=== PATIENT | male | born 1950 | race Caucasian/White ===

== ENCOUNTER 2016-10-10 06:20 | Emergency (ER) | payer OTHER, MEDICARE ==
[~2016-10-10] VITALS: Ht 188 cm; Wt 81.7 kg
--- NOTE | ~2016-10-10 | EKG ---
[place] [address] [employer] 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 : 1950 Requested By: Igor Lin Order Number: [id number] MD: Jorge Vogel Measurements Intervals [place] Rate: 55 P: 10 ND: 141 QRS: -9 QRSD: 95 T: -42 QT: 436 QTc: 417 Interpretive Statements Sinus rhythm Probable left atrial enlargement Anteroseptal infarct, old Nonspecific T abnormalities, lateral leads Compared to ECG 09/14/2014 16:58:12 T-wave abnormality now present Electronically Signed On 10-11-2016 7:48:59 CDT by Jorge Vogel [email or web address] <ELECTRONICALLY SIGNED> By: Jorge Vogel MD, [facility] 10/11/16 0748 0904 0904 Jorge Vogel MD, [facility] /EPI
[~2016-10-10 06:20] MED LIST: ACTOS 45 MG45 M1 PO; ACYCLOVIR 400400 MG PO; ADRENACLIC0.3 MG/0.3 IM; ADVIL PM CAPLE1 EACH PO; AMARYL4 MG PO; AMLODIPINE-BEN1 EAC1; AMOXICILLIN 50500 MG PO; ASPIRIN325 PO; BAYER PLUS 500500 MG PO; BENADRYL25 MG PO; CARVEDILOL12.5 MG PO; CATAPRES0.1 MG PO; CHLORTHALIDONE25 MG PO; CLARINEX5 MG PO; CLONIDINE 2 PO; CLONIDINE0.1 PO; COZAAR 25 MG TA25 M1 PO; CRESTOR10 MG PO; DEPO-TESTO200 MG/1 M IM; DILTIAZEM 24HR360 M1 PO; DILTIAZEM 24HR360 MG PO; EFFIENT10 MG PO; ENDOCET 10-3251 EACH; EPIPEN 2-P0.3 MG/0.3 IM; EPIPEN0.3 MG/0.3 IM; FENTANYL 1100 MCG/HR TRANSDERM; FENTANYL PATCH75 MCG TOP; FLONASE 0.05%50 MCG NASAL; FLONASE16 GM NASAL; GLUCOPHAGE XR500 MG PO; GLUCOPHAGE500 MG PO; HCTZ; HUMALOG100 UNIT/1 SUBQ; HYDROCHLOROTHIA25 M2 PO; HYDROCODON-ACE1 EAC5; HYDROCODON-ACE1 EAC7 PO; IBUPROFEN 800800 M1 PO; INVOKANA300 MG PO; K-DUR10 ME1 PO; K-DUR10 MEQ PO; LANTUS SUBQ; LASIX 40 MG TAB40 M1 PO; LEVITRA20 MG PO; LIDODERM 5%1 PATC1 TOP; LIPITOR10 MG PO; LUNESTA PO; LUNESTA3 MG PO; MEDROL DOSPAK21 TAB PO; METOPROLOL SUCC25 M1 PO; MULTIVITAMINS PO; MYCELEX10 MG PO; NEO-SYNEPHRINE15 M2 NASAL; NEOSYNEPHRINE; NITROGLYCERIN0.4 MG SUBLING; NORCO 5-325 TA1 EACH PO; OXYCODONE HCL5 M1 PO; OXYCONTIN PO; OXYCONTIN10 M1 PO; PAXIL10 MG; PEPCID40 MG PO; PHENADOZ PO; PIOGLITAZONE15 MG; PREDNISOLONE 5 M5 M1 PO; PREDNISONE 10 M10 M1 PO; PREDNISONE 10 M10 MG PO; PREDNISONE 20 M20 M1 PO; PREDNISONE 20 M20 MG PO; PREDNISONE 5 MG5 M1; PREDNISONE 5 MG5 M1 PO; PROAIR HFA8.5 GM INH; PROAIR HFA8.5 GM PO; ROBAXIN 750 MG750 M1 PO; TEKTURNA300 MG PO; TRAZODONE HCL100 MG PO; VALACYCLOVIR500 MG PO; VALIUM5 MG PO; ZANTAC 150MG T150 M1 PO; ZOFRAN4 MG PO
[2016-10-10 07:14] LABS: ABSOLUTE NEUTROPHILS 8.3 thou/uL (1.4-8.2); BASOPHILS 0.7 % (0.0-2.0); EOSINOPHILS 0.7 % (0.0-3.0); HEMATOCRIT 46.2 % (42.0-52.0); HEMOGLOBIN 15.8 gm/dL (14.0-18.0); LYMPHOCYTES 12.6 % (24.0-44.0); MANUAL DIFF NO; MCH 34.7 pg (26.0-34.0); MCHC 34.3 g/dL (28.0-37.0); MCV 101.4 fL (80.0-100.0); MONOCYTES 9.7 % (1.0-8.0); PLATELET COUNT 244 thou/uL (150-400); POLYS 76.3 % (36.0-66.0); RBC 4.56 mil/uL (4.50-6.00); RDW 12.9 % (10.5-14.5); WBC 10.9 thou/uL (4.0-11.0)
[2016-10-10 07:23] LABS: CALCIUM 9.8 mg/dL (8.5-10.1); POTASSIUM 3.6 mmol/L (3.5-5.1)
[2016-10-10 07:29] LABS: TOTAL BILIRUBIN 0.9 mg/dL (<0.1-1.0); TOTAL PROTEIN 7.2 g/dL (6.4-8.2)
[2016-10-10 08:39] LABS: URINE BILIRUBIN NEGATIVE (Negative); URINE BLOOD TRACE (Negative); URINE GLUCOSE-RANDOM* 2+ (Negative); URINE KETONES 1+ (Negative); URINE LEUKOCYTES-REFLEX NEGATIVE (Negative); URINE PROTEIN (DIPSTICK) NEGATIVE (Negative); URINE UROBILINOGEN 0.2 E.U./dl (0.2-1.0)
[2016-10-10 08:40] LABS: URINE COLOR YELLOW
[2016-10-10] MEDS ORDERED: PHENERGAN25 M1 RC ×2 (09:45→09:48)
[2016-10-10] MEDS ORDERED: ZOFRAN ODT4 MG PO ×2 (09:45→09:48)
== END 2016-10-10 09:46 | disposition home or self-care (01) ==
LOC: ER 06:20
PROVIDERS: Emergency Medicine
DX: R11.2 Nausea with vomiting, unspecified (principal); Z86.79 Personal history of other diseases of the circulatory system; F17.210 Nicotine dependence, cigarettes, uncomplicated; Z91.040 Latex allergy status; Z91.018 Allergy to other foods; Z88.8 Allergy status to other drugs, medicaments and biological substances; Z95.5 Presence of coronary angioplasty implant and graft; Z79.4 Long term (current) use of insulin; Z79.82 Long term (current) use of aspirin

== ENCOUNTER 2017-05-18 06:07 | Emergency (ER) | payer OTHER, MEDICARE ==
[~2017-05-18] VITALS: Ht 188 cm; Wt 81.7 kg
--- NOTE | ~2017-05-18 | EKG ---
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[facility] [place] 1950 Requested By: Alex Fisher Order Number: [id number] MD: Jorge Vogel Measurements Intervals [place] Rate: 55 P: 26 SC: 147 QRS: 1 QRSD: 95 T: 9 QT: 423 QTc: 405 Interpretive Statements Sinus rhythm Anterior infarct, old Compared to ECG 10/10/2016 09:04:35 T-wave abnormality less prominent Electronically Signed On 05-18-2017 8:25:54 CDT by Jorge Vogel [email or web address] <ELECTRONICALLY SIGNED> By: Jorge Vogel MD, [facility] 05/18/17 0825 0624 3 Jorge Vogel MD, FACC /EPI
[~2017-05-18 06:07] MED LIST changes: +ONDANSETRON HCL4 M2 PO; +PHENERGAN25 M1 RC; +ZOFRAN ODT4 MG PO
[2017-05-18] MEDS ORDERED: ASPIR 8181 MG PO (06:26)
[2017-05-18] MEDS ORDERED: VITAMIN D32000 UNI1 PO (06:37)
[2017-05-18] MEDS ORDERED: TESTOSTERON100 MG/ML IM (06:37)
[2017-05-18 06:46] LABS: ABSOLUTE NEUTROPHILS 7.4 thou/uL (1.4-8.2); BASOPHILS 0.5 % (0.0-2.0); EOSINOPHILS 0.4 % (0.0-3.0); HEMATOCRIT 44.6 % (42.0-52.0); HEMOGLOBIN 15.2 gm/dL (14.0-18.0); LYMPHOCYTES 14.3 % (24.0-44.0); MCH 34.2 pg (26.0-34.0); MCHC 34.2 g/dL (28.0-37.0); PLATELET COUNT 239 thou/uL (150-400); POLYS 77.8 % (36.0-66.0); RBC 4.46 mil/uL (4.50-6.00); RDW 13.7 % (10.5-14.5); WBC 9.5 thou/uL (4.0-11.0)
[2017-05-18 06:58] LABS: ANION GAP 5 mmol/L (7-16); BUN 15 mg/dL (7-18); CALCIUM 9.7 mg/dL (8.5-10.1); CHLORIDE 102 mmol/L (98-107); CO2 32 mmol/L (21-32); GLUCOSE 168 mg/dL (74-106); POTASSIUM 3.4 mmol/L (3.5-5.1); SODIUM 139 mmol/L (136-145)
[2017-05-18 07:07] LABS: MAGNESIUM 1.7 mg/dL (1.8-2.4); SGOT 22 U/L (15-37); SGPT 30 U/L (30-65); TOTAL PROTEIN 7.3 g/dL (6.4-8.2); TROPONIN-I < 0.04 ng/mL (<0.06)
[2017-05-18 07:49] LABS: URINE BILIRUBIN NEGATIVE (Negative); URINE BLOOD NEGATIVE (Negative); URINE CLARITY CLEAR; URINE COLOR YELLOW; URINE GLUCOSE-RANDOM* NEGATIVE (Negative); URINE KETONES 1+ (Negative); URINE LEUKOCYTES-REFLEX NEGATIVE (Negative); URINE NITRITE-REFLEX NEGATIVE (Negative); URINE PROTEIN (DIPSTICK) NEGATIVE (Negative); URINE UROBILINOGEN 0.2 E.U./dl (0.2-1.0)
[2017-05-18] MEDS ORDERED: ZOFRAN ODT4 MG PO (08:03)
[2017-05-18] MEDS ORDERED: PHENERGAN12.5 M2 RECTAL (08:03)
[2017-05-18 08:40] VITALS: BP 143/88
== END 2017-05-18 08:40 | disposition home or self-care (01) ==
LOC: ER 06:07
PROVIDERS: Emergency Medicine
DX: R11.2 Nausea with vomiting, unspecified (principal); Z91.041 Radiographic dye allergy status; Z91.040 Latex allergy status; Z91.018 Allergy to other foods; Z88.8 Allergy status to other drugs, medicaments and biological substances

== ENCOUNTER → 2018-01-11 | Outpatient (CLI) | payer OTHER, MEDICARE ==
[~2018-01-11] MED LIST changes: +ASPIR 8181 MG PO; +PHENERGAN12.5 M2 RECTAL; +TESTOSTERON100 MG/ML IM; +VITAMIN D32000 UNI1 PO
== END ==
LOC: MRI 08:42
DX: M47.27 Other spondylosis with radiculopathy, lumbosacral region (principal); M47.813 Spondylosis without myelopathy or radiculopathy, cervicothoracic region; M50.23 Other cervical disc displacement, cervicothoracic region; M51.17 Intervertebral disc disorders with radiculopathy, lumbosacral region; M48.03 Spinal stenosis, cervicothoracic region; M48.062 Spinal stenosis, lumbar region with neurogenic claudication; M43.16 Spondylolisthesis, lumbar region; I77.810 Thoracic aortic ectasia; M41.85 Other forms of scoliosis, thoracolumbar region; M50.33 Other cervical disc degeneration, cervicothoracic region; M51.34 Other intervertebral disc degeneration, thoracic region; V89.2XXA Person injured in unspecified motor-vehicle accident, traffic, initial encounter

== ENCOUNTER → 2018-01-31 | Outpatient (CLI) | payer OTHER, MEDICARE ==
--- NOTE | ~2018-01-31 | 2DMMODE ---
[facility] [place] [address] 2 D/M-MODE ECHOCARDIOGRAM Name: BRANDYRODRICK KAREN Room #: REG CL [facility]#: [id number] Admission: 01/31/18 Attend Phys: Ford Brooks MD Discharge: Date of : 48 Date of Service: 01/31/18 1125 Report #: [id number] THIS REPORT FOR: //name// APPROVED REPORT Study performed: 01/31/2018 10:46:17 EXAM: Comprehensive 2D, Doppler, and color-flow Echocardiogram Patient Location: Out-Patient Status: routine BSA: 2.08 HR: 65 bpm BP: 135/65 mmHg Other Information Study Quality: Good Indications Diabetes CAD Hypertension/HDD 2D Dimensions RVDd: 39.68 mm IVSd: 14.77 (7-11mm) LVOT Diam: 24.18 (18-24mm) LVDd: 43.65 mm PWd: 12.87 (7-11mm) Ascending Ao: 39.76 (22-36mm) LVDs: 29.94 (25-40mm) Aortic Root: 33.72 mm IVC: 23.00 mm Volumes Left Atrial Volume (Systole) Single Plane 4CH: 58.15 mL Single Plane 2CH: 102.69 mL LA ESV Index: 44.00 mL/m2 Aortic Valve AoV Peak Anshu.: 1.45 m/s AO Peak Gr.: 8.42 mmHg LVOT Max P.79 mmHg LVOT Max V: 0.97 m/s NICOLAS Vmax: 3.08 cm2 Mitral Valve E/A Ratio: 0.8 MV Decel. Time: 211.37 ms [facility] [address] [address] 2 D/M-MODE ECHOCARDIOGRAM Name: RODRICK NAVA Room #: REG CL [facility]#: [id number] Admission: 01/31/18 Attend Phys: Ford Brooks MD Discharge: Date of : 48 Date of Service: 01/31/18 1125 Report #: [id number] MV E Max Anshu.: 0.69 m/s MV A Anshu.: 0.87 m/s MV PHT: 61.30 ms IVRT: 107.27 ms Pulmonary Valve PV Peak Anshu.: 1.01 m/s PV Peak Gr.: 4.10 mmHg Pulmonary Vein P Vein S: 0.53 m/s P Vein A: 0.29 m/s P Vein D: 0.44 m/s P Vein A Dur.: 148.8 msec P Vein S/D Ratio: 1.20 Tricuspid Valve TR Peak Anshu.: 2.89 m/s RAP Estimate: 10.00 mmHg TR Peak Gr.: 33.37 mmHg PA Pressure: 43.00 mmHg Left Ventricle The left ventricle is normal size. Mild concentric left ventricular hypertrophy. The left ventricular systolic function is normal. The left ventricular ejection fraction is within the normal range. LVEF is 55-60%. Mild diastolic dysfunction is present (impaired relaxation pattern). Right Ventricle Right ventricle is at the upper limits of normal. The right ventricular systolic function is normal. Atria Left atrium is mildly dilated. Right atrium is mildly dilated. Aortic Valve Aortic valve is mildly calcified. No aortic regurgitation is present. There is no aortic valvular stenosis. Mitral Valve The mitral valve is normal in structure. Mild mitral regurgitation. No evidence of mitral valve stenosis. Tricuspid Valve The tricuspid valve is normal in structure. Mild tricuspid regurgitation. PAP is estimated at 43 mmHg. Pulmonic Valve [facility] [address] [place] [address] 2 D/M-MODE ECHOCARDIOGRAM Name: BRANDYRODRICK JONES Room #: REG [facility]#: [id number] Admission: 01/31/18 Attend Phys: Ford Brooks MD Discharge: Date of : 48 Date of Service: 01/31/18 1125 Report #: [id number] The pulmonary valve is normal in structure. Mild pulmonic regurgitation. Great Vessels The aortic root is normal in size. Ascending aorta is mildly dilated at 4.0 cm. IVC is dilated and collapses >50% with inspiration. Pericardium There is no pericardial effusion. <Conclusion> The left ventricle is normal size. Mild concentric left ventricular hypertrophy. The left ventricular systolic function is normal. Mild diastolic dysfunction is present (impaired relaxation pattern). Right ventricle is at the upper limits of normal. Left atrium is mildly dilated. Right atrium is mildly dilated. Aortic valve is mildly calcified. Mild mitral regurgitation. Mild tricuspid regurgitation. PAP is estimated at 43 mmHg. <ELECTRONICALLY SIGNED> By: Ford Brooks MD 01/31/18 1125 1125 1125 Ford Brooks MD /INF
== END ==
LOC: CV 07:02
DX: I08.1 Rheumatic disorders of both mitral and tricuspid valves (principal); I25.10 Atherosclerotic heart disease of native coronary artery without angina pectoris; E11.9 Type 2 diabetes mellitus without complications; I10 Essential (primary) hypertension

== ENCOUNTER 2019-01-27 13:17 | Emergency (ER) | payer OTHER, MEDICARE ==
[~2019-01-27] VITALS: Ht 188 cm; Wt 79.8 kg
[2019-01-27 14:25] LABS: ABSOLUTE NEUTROPHILS 9.9 thou/uL (1.4-8.2); BASOPHILS 0.6 % (0.0-2.0); EOSINOPHILS 0.1 % (0.0-3.0); HEMATOCRIT 47.9 % (42.0-52.0); HEMOGLOBIN 16.4 gm/dL (14.0-18.0); LYMPHOCYTES 7.9 % (24.0-44.0); MCH 34.6 pg (26.0-34.0); MCHC 34.4 g/dL (28.0-37.0); MCV 100.6 fL (80.0-100.0); PLATELET COUNT 338 thou/uL (150-400); POLYS 86.4 % (36.0-66.0); RBC 4.76 mil/uL (4.50-6.00); WBC 11.4 thou/uL (4.0-11.0)
[2019-01-27 14:29] LABS: CALCIUM 10.2 mg/dL (8.5-10.1); CREATININE 1.1 mg/dL (0.7-1.3); POTASSIUM 3.8 mmol/L (3.5-5.1)
[2019-01-27 14:35] LABS: TOTAL BILIRUBIN 1.1 mg/dL (<0.1-1.0); TOTAL PROTEIN 8.2 g/dL (6.4-8.2)
[2019-01-27] MEDS ORDERED: FUROSEMIDE 40 M40 MG PO (15:00)
[2019-01-27] MEDS ORDERED: SYMBICORT80 MCG/4.1 INH (15:00)
[2019-01-27] MEDS ORDERED: TAMSULOSIN HCL0.4 MG PO (15:02)
[2019-01-27] MEDS ORDERED: ATORVASTATIN CA20 MG PO (15:02)
[2019-01-27] MEDS ORDERED: TIZANIDINE HCL4 M1 PO (15:03)
[2019-01-27] MEDS ORDERED: NARCAN4 MG NARES (15:04)
[2019-01-27] MEDS ORDERED: IRON325 PO (15:04)
[2019-01-27 16:07] LABS: URINE BILIRUBIN NEGATIVE (Negative); URINE BLOOD 1+ (Negative); URINE CLARITY CLEAR; URINE COLOR YELLOW; URINE GLUCOSE-RANDOM* 3+ (Negative); URINE KETONES 3+ (Negative); URINE LEUKOCYTES-REFLEX NEGATIVE (Negative); URINE NITRITE-REFLEX NEGATIVE (Negative); URINE PROTEIN (DIPSTICK) TRACE (Negative); URINE SPECIFIC GRAVITY 1.025 (1.005-1.035); URINE UROBILINOGEN 0.2 E.U./dl (0.2-1.0)
[2019-01-27 16:16] LABS: URINE RBC 0-2 Rare /HPF (0-2)
[2019-01-27 16:17] LABS: BACTERIA-REFLEX 1-9 Few /HPF (None Seen); CASTS None Seen /LPF (None Seen); CRYSTALS None Seen /LPF (None Seen); SQUAMOUS 0-3 Few /LPF (0-3); URINE WBC-REFLEX None Seen /HPF (0-5)
[2019-01-27] MEDS ORDERED: PROTONIX40 M1 PO (17:14)
[2019-01-27 17:55] VITALS: BP 169/88
== END 2019-01-27 17:58 | disposition home or self-care (01) ==
LOC: ER 13:17
PROVIDERS: Emergency Medicine
DX: K29.70 Gastritis, unspecified, without bleeding (principal); R11.2 Nausea with vomiting, unspecified; R10.13 Epigastric pain; R10.12 Left upper quadrant pain; F17.210 Nicotine dependence, cigarettes, uncomplicated; Z91.040 Latex allergy status; Z88.8 Allergy status to other drugs, medicaments and biological substances; Z91.018 Allergy to other foods; Z79.4 Long term (current) use of insulin; Z79.899 Other long term (current) drug therapy; Z79.82 Long term (current) use of aspirin

== ENCOUNTER → 2019-01-30 | Outpatient (CLI) | payer OTHER, MEDICARE ==
[~2019-01-30] MED LIST changes: +ATORVASTATIN CA20 MG PO; +FUROSEMIDE 40 M40 MG PO; +IRON325 PO; +NARCAN4 MG NARES; +PROTONIX40 M1 PO; +SYMBICORT80 MCG/4.1 INH; +TAMSULOSIN HCL0.4 MG PO; +TIZANIDINE HCL4 M1 PO
--- NOTE | 2019-01-30 10:10 | 2DMMODE ---
[facility] [address] [place] [address] 2 D/M-MODE ECHOCARDIOGRAM Name: BRANDYRODRICK KAREN Room #: REG CL [facility]#: [id number] Admission: 01/30/19 Attend Phys: Ford Brooks MD Discharge: Date of : 48 Report #: [id number] THIS REPORT FOR: //name// APPROVED REPORT Study performed: 01/30/2019 09:09:14 EXAM: Comprehensive 2D, Doppler, and color-flow Echocardiogram Patient Location: Out-Patient Room #: Echo lab 2 Status: routine BSA: 2.17 HR: 69 bpm BP: 108/58 mmHg Rhythm: NSR Other Information Study Quality: Good Indications CAD Hypertension/HDD 2D Dimensions RVDd: 39.83 mm IVSd: 14.30 (7-11mm) LVOT Diam: 21.51 (18-24mm) LVDd: 41.40 mm PWd: 13.11 (7-11mm) Ascending Ao: 38.84 (22-36mm) LVDs: 28.14 (25-40mm) Aortic Root: 33.27 mm IVC: 12.00 mm Volumes Left Atrial Volume (Systole) Single Plane 4CH: 35.90 mL Single Plane 2CH: 45.42 mL LA ESV Index: 21.00 mL/m2 Aortic Valve AoV Peak Anshu.: 1.21 m/s AO Peak Gr.: 5.86 mmHg LVOT Max P.19 mmHg LVOT Max V: 1.02 m/s NICOLAS Vmax: 3.07 cm2 Mitral Valve E/A Ratio: 0.6 MV Decel. Time: 245.08 ms [facility] [address] [place] [address] 2 D/M-MODE ECHOCARDIOGRAM Name: RODRICK NAVA Room #: REG CL [facility]#: [id number] Admission: 01/30/19 Attend Phys: oFrd Brooks MD Discharge: Date of : 48 Report #: [id number] MV E Max Anshu.: 0.45 m/s MV A Anshu.: 0.78 m/s MV PHT: 71.07 ms IVRT: 226.07 ms Pulmonary Valve PV Peak Anshu.: 1.06 m/s PV Peak Gr.: 4.53 mmHg Pulmonary Vein P Vein S: 0.69 m/s P Vein A: 0.30 m/s P Vein D: 0.27 m/s P Vein A Dur.: 110.7 msec P Vein S/D Ratio: 2.56 Left Ventricle The left ventricle is normal size. There is normal LV segmental wall motion. Mild concentric left ventricular hypertrophy. The left ventricular systolic function is normal. The left ventricular ejection fraction is within the normal range. LVEF is 60-65%. Grade I - abnormal relaxation pattern. Right Ventricle The right ventricle is normal size. The right ventricular systolic function is normal. Atria The left atrium size is normal. The right atrium size is normal. Aortic Valve The aortic valve is normal in structure. No aortic regurgitation is present. There is no aortic valvular stenosis. Mitral Valve The mitral valve is normal in structure. There is no mitral valve regurgitation noted. No evidence of mitral valve stenosis. Tricuspid Valve The tricuspid valve is normal in structure. There is no tricuspid valve regurgitation noted. Pulmonic Valve The pulmonary valve is normal in structure. Trace pulmonic regurgitation. Great Vessels The aortic root is normal in size. IVC is normal in size and [facility] [address] [place] [address] 2 D/M-MODE ECHOCARDIOGRAM Name: BRANDYRODRICK JONES Room #: REG [facility]#: [id number] Admission: 01/30/19 Attend Phys: Ford Brooks MD Discharge: Date of : 48 Report #: [id number] collapses >50% with inspiration. Pericardium There is no pericardial effusion. <Conclusion> The left ventricle is normal size. Mild concentric left ventricular hypertrophy. The left ventricular systolic function is normal. Grade I - abnormal relaxation pattern. The right ventricle is normal size. The left atrium size is normal. The aortic valve is normal in structure. There is no mitral valve regurgitation noted. There is no tricuspid valve regurgitation noted. <ELECTRONICALLY SIGNED> By: Ford Brooks MD 01/30/19 1009 Ford Brooks MD /INF
== END ==
LOC: CV 08:57
DX: I25.10 Atherosclerotic heart disease of native coronary artery without angina pectoris (principal); Z91.040 Latex allergy status; Z88.8 Allergy status to other drugs, medicaments and biological substances; Z88.2 Allergy status to sulfonamides

== ENCOUNTER → 2019-02-17 | Outpatient (CLI) | payer OTHER, MEDICARE | LOC: NUC 02-10 11:11 | DX: I25.10 Atherosclerotic heart disease of native coronary artery without angina pectoris (principal); E78.5 Hyperlipidemia, unspecified; I10 Essential (primary) hypertension; J44.9 Chronic obstructive pulmonary disease, unspecified; E11.51 Type 2 diabetes mellitus with diabetic peripheral angiopathy without gangrene; Z79.4 Long term (current) use of insulin; Z87.891 Personal history of nicotine dependence; Z91.040 Latex allergy status; Z79.899 Other long term (current) drug therapy ==

== ENCOUNTER → 2019-03-05 | Outpatient (CLI) | payer OTHER, MEDICARE | LOC: RAD 14:10 | DX: R06.02 Shortness of breath (principal); Z88.2 Allergy status to sulfonamides; Z88.8 Allergy status to other drugs, medicaments and biological substances; Z91.040 Latex allergy status ==

== ENCOUNTER → 2019-03-13 | Outpatient (CLI) | payer OTHER, MEDICARE | LOC: CAT 07:46 | DX: Z12.2 Encounter for screening for malignant neoplasm of respiratory organs (principal); R91.1 Solitary pulmonary nodule; K80.20 Calculus of gallbladder without cholecystitis without obstruction; Z87.891 Personal history of nicotine dependence ==

== ENCOUNTER → 2019-05-19 | Outpatient (CLI) | payer OTHER, MEDICARE | LOC: SJCVC 13:35 | DX: I21.29 ST elevation (STEMI) myocardial infarction involving other sites (principal); R94.31 Abnormal electrocardiogram [ECG] [EKG]; I25.10 Atherosclerotic heart disease of native coronary artery without angina pectoris; I10 Essential (primary) hypertension; E78.00 Pure hypercholesterolemia, unspecified; J44.9 Chronic obstructive pulmonary disease, unspecified; I25.2 Old myocardial infarction; F17.210 Nicotine dependence, cigarettes, uncomplicated; Z79.899 Other long term (current) drug therapy ==

== ENCOUNTER 2019-06-06 13:32 | Emergency (ER) | payer OTHER, MEDICARE ==
[~2019-06-06] VITALS: Ht 188 cm; Wt 84.4 kg
[2019-06-06 14:16] LABS: URINE BILIRUBIN NEGATIVE (Negative); URINE BLOOD TRACE (Negative); URINE CLARITY CLEAR; URINE COLOR YELLOW; URINE GLUCOSE-RANDOM* TRACE (Negative); URINE KETONES TRACE (Negative); URINE LEUKOCYTES-REFLEX NEGATIVE (Negative); URINE NITRITE-REFLEX NEGATIVE (Negative); URINE PROTEIN (DIPSTICK) NEGATIVE (Negative); URINE SPECIFIC GRAVITY 1.015 (1.005-1.035); URINE UROBILINOGEN 0.2 E.U./dl (0.2-1.0)
[2019-06-06 14:17] LABS: ABSOLUTE NEUTROPHILS 7.1 thou/uL (1.4-8.2); BASOPHILS 0.7 % (0.0-2.0); EOSINOPHILS 0.2 % (0.0-3.0); HEMATOCRIT 44.6 % (42.0-52.0); HEMOGLOBIN 15.3 gm/dL (14.0-18.0); LYMPHOCYTES 13.2 % (24.0-44.0); MCH 34.4 pg (26.0-34.0); MCHC 34.2 g/dL (28.0-37.0); MCV 100.5 fL (80.0-100.0); PLATELET COUNT 276 thou/uL (150-400); POLYS 77.9 % (36.0-66.0); RBC 4.44 mil/uL (4.50-6.00); RDW 12.7 % (10.5-14.5); WBC 9.1 thou/uL (4.0-11.0)
[2019-06-06 14:23] LABS: CALCIUM 10.4 mg/dL (8.5-10.1); POTASSIUM 3.1 mmol/L (3.5-5.1)
[2019-06-06 14:29] LABS: ALBUMIN 4.1 g/dL (3.4-5.0); TOTAL BILIRUBIN 1.1 mg/dL (<0.1-1.0); TOTAL PROTEIN 7.7 g/dL (6.4-8.2)
[2019-06-06] MEDS ORDERED: POTASSIUM20 PO (16:57)
[2019-06-06] MEDS ORDERED: ONDANSETRON HCL4 M2 PO (16:57)
[2019-06-06] MEDS ORDERED: COMPAZINE25 MG RECTAL (16:57)
[2019-06-06 17:15] VITALS: BP 175/92
== END 2019-06-06 17:15 | disposition home or self-care (01) ==
LOC: ER 13:32
PROVIDERS: Physician Assistant
DX: R11.2 Nausea with vomiting, unspecified (principal); E87.6 Hypokalemia; I25.2 Old myocardial infarction; F17.210 Nicotine dependence, cigarettes, uncomplicated; Z79.899 Other long term (current) drug therapy; Z79.4 Long term (current) use of insulin; Z91.040 Latex allergy status; Z91.018 Allergy to other foods; Z79.82 Long term (current) use of aspirin

== ENCOUNTER → 2019-09-16 | Outpatient (CLI) | payer OTHER, MEDICARE ==
[~2019-09-16] MED LIST changes: +COMPAZINE25 MG RECTAL; +POTASSIUM20 PO
== END ==
LOC: CAT 10:26
PROVIDERS: ATTEND Internal Medicine Pulmonary Disease
DX: K80.80 Other cholelithiasis without obstruction (principal); R91.1 Solitary pulmonary nodule; R91.8 Other nonspecific abnormal finding of lung field

== ENCOUNTER → 2019-11-20 | Outpatient (CLI) | payer OTHER, MEDICARE | LOC: SJCVC 14:00 | PROVIDERS: ATTEND Internal Medicine Cardiovascular Disease | DX: R94.31 Abnormal electrocardiogram [ECG] [EKG] (principal); I25.10 Atherosclerotic heart disease of native coronary artery without angina pectoris; I10 Essential (primary) hypertension; E78.00 Pure hypercholesterolemia, unspecified; I25.2 Old myocardial infarction; J44.9 Chronic obstructive pulmonary disease, unspecified; F17.200 Nicotine dependence, unspecified, uncomplicated; Z79.82 Long term (current) use of aspirin; Z79.84 Long term (current) use of oral hypoglycemic drugs; Z79.899 Other long term (current) drug therapy; Z82.49 Family history of ischemic heart disease and other diseases of the circulatory system ==

== ENCOUNTER 2020-03-28 14:19 | Emergency (ER) | payer OTHER, MEDICARE ==
[~2020-03-28] VITALS: Ht 188 cm; Wt 79.8 kg
[2020-03-28 14:54] LABS: ABSOLUTE NEUTROPHILS 6.9 thou/uL (1.4-8.2); ANION GAP 8 mmol/L (7-16); BASOPHILS 0.6 % (0.0-2.0); BUN 22 mg/dL (7-18); CALCIUM 10.1 mg/dL (8.5-10.1); CHLORIDE 98 mmol/L (98-107); CO2 31 mmol/L (21-32); CREATININE 1.3 mg/dL (0.7-1.3); EOSINOPHILS 1.8 % (0.0-3.0); GLUCOSE 311 mg/dL (74-106); HEMATOCRIT 40.3 % (42.0-52.0); HEMOGLOBIN 13.8 gm/dL (14.0-18.0); LYMPHOCYTES 16.9 % (24.0-44.0); MCH 34.6 pg (26.0-34.0); MCHC 34.2 g/dL (28.0-37.0); MCV 101.1 fL (80.0-100.0); MONOCYTES 8.6 % (1.0-8.0); PLATELET COUNT 270 thou/uL (150-400); POLYS 72.1 % (36.0-66.0); POTASSIUM 3.4 mmol/L (3.5-5.1); RBC 3.99 mil/uL (4.50-6.00); RDW 12.4 % (10.5-14.5); SODIUM 137 mmol/L (136-145); WBC 9.6 thou/uL (4.0-11.0)
[2020-03-28 15:05] LABS: ALBUMIN 3.6 g/dL (3.4-5.0); LIPASE 57 U/L (73-393); MAGNESIUM 1.3 mg/dL (1.8-2.4); SGOT 25 U/L (15-37); SGPT 40 U/L (16-63); TOTAL BILIRUBIN 0.7 mg/dL (0.2-1.0); TOTAL PROTEIN 6.7 g/dL (6.4-8.2); TROPONIN-I <0.06 ng/mL (<0.06)
[2020-03-28 15:10] LABS: D-DIMER 0.87 ug/mLFEU (0.19-0.50); INR 1.1; PROTIME 11.3 Seconds (9.3-11.4)
[2020-03-28] MEDS ORDERED: PREDNISONE 5 MG5 MG PO (15:12)
[2020-03-28] MEDS ORDERED: NOXIFOL-D32500 UNIT PO (16:45)
[2020-03-28] MEDS ORDERED: GINKGO BILOBA60 MG PO (16:46)
[2020-03-28] MEDS ORDERED: BETAMETHASONE D50 G2 TOP (16:47)
[2020-03-28] MEDS ORDERED: TRELEGY ELLIPT1 EACH INH (16:47)
[2020-03-28 17:14] LABS: URINE BILIRUBIN NEGATIVE (Negative); URINE BLOOD NEGATIVE (Negative); URINE CLARITY CLEAR; URINE COLOR YELLOW; URINE GLUCOSE-RANDOM* 3+ (Negative); URINE KETONES NEGATIVE (Negative); URINE LEUKOCYTES-REFLEX NEGATIVE (Negative); URINE NITRITE-REFLEX NEGATIVE (Negative); URINE PROTEIN (DIPSTICK) NEGATIVE (Negative); URINE SPECIFIC GRAVITY 1.015 (1.005-1.035); URINE UROBILINOGEN 0.2 E.U./dl (0.2-1.0)
[2020-03-28 17:16] VITALS: BP 125/64
[2020-03-28 17:21] LABS: AMP/METHAMP Negative (Negative); BARBITURATES Negative (Negative); BENZODIAZEPINES Negative (Negative); COCAINE Negative (Negative); METHADONE Negative (Negative); OPIATES POSITIVE (Negative); PCP Negative (Negative)
--- NOTE | 2020-03-29 07:45 | EKG ---
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 : 1950 Requested By: Britni Perez Order Number: [id number] MD: David Cortes Measurements Intervals [place] Rate: 65 P: 8 MS: 177 QRS: -15 QRSD: 103 T: -25 QT: 386 QTc: 402 Interpretive Statements Sinus rhythm Borderline left axis deviation Borderline low voltage, extremity leads Probable anteroseptal infarct, old Compared to ECG 05/18/2017 06:24:08 No significant changes Electronically Signed On 03-29-2020 7:45:14 [employer] by David Cortes [email or web address] <ELECTRONICALLY SIGNED> By: David Cortes MD, [facility] 03/29/20 0745 1420 1420 David Cortes MD, FACC /EPI
== END 2020-03-28 18:06 | disposition home or self-care (01) ==
LOC: ER 14:19
PROVIDERS: Physician Assistant
DX: R07.89 Other chest pain (principal); D64.9 Anemia, unspecified; K80.20 Calculus of gallbladder without cholecystitis without obstruction; R55 Syncope and collapse; E83.42 Hypomagnesemia; F17.210 Nicotine dependence, cigarettes, uncomplicated; Z91.040 Latex allergy status; Z79.899 Other long term (current) drug therapy; Z79.82 Long term (current) use of aspirin

== ENCOUNTER → 2020-05-07 | Outpatient (CLI) | payer OTHER, MEDICARE ==
[~2020-05-07] MED LIST changes: +BETAMETHASONE D50 G2 TOP; +GINKGO BILOBA60 MG PO; +NOXIFOL-D32500 UNIT PO; +PREDNISONE 5 MG5 MG PO; +TRELEGY ELLIPT1 EACH INH
== END ==
LOC: RAD 10:18
PROVIDERS: ATTEND Family Medicine
DX: S32.020A Wedge compression fracture of second lumbar vertebra, initial encounter for closed fracture (principal); M47.812 Spondylosis without myelopathy or radiculopathy, cervical region; M43.12 Spondylolisthesis, cervical region; M41.86 Other forms of scoliosis, lumbar region; J32.9 Chronic sinusitis, unspecified; X58.XXXA Exposure to other specified factors, initial encounter; Y93.89 Activity, other specified; Y92.89 Other specified places as the place of occurrence of the external cause; Y99.8 Other external cause status

== ENCOUNTER → 2020-05-20 | Outpatient (CLI) | payer OTHER, MEDICARE | LOC: SJCVCIMAG 05-13 09:31 | PROVIDERS: ATTEND Internal Medicine Cardiovascular Disease | DX: I11.9 Hypertensive heart disease without heart failure (principal); R94.31 Abnormal electrocardiogram [ECG] [EKG]; I25.10 Atherosclerotic heart disease of native coronary artery without angina pectoris; E78.00 Pure hypercholesterolemia, unspecified; I77.819 Aortic ectasia, unspecified site; R60.9 Edema, unspecified; S81.802A Unspecified open wound, left lower leg, initial encounter; I25.2 Old myocardial infarction; J44.9 Chronic obstructive pulmonary disease, unspecified; E11.9 Type 2 diabetes mellitus without complications; G89.4 Chronic pain syndrome; F17.210 Nicotine dependence, cigarettes, uncomplicated; Z98.890 Other specified postprocedural states; Z88.8 Allergy status to other drugs, medicaments and biological substances; Z98.61 Coronary angioplasty status; Z79.4 Long term (current) use of insulin; Z79.82 Long term (current) use of aspirin; Z79.899 Other long term (current) drug therapy; Z82.49 Family history of ischemic heart disease and other diseases of the circulatory system; X58.XXXA Exposure to other specified factors, initial encounter; Y93.89 Activity, other specified; Y92.89 Other specified places as the place of occurrence of the external cause; Y99.8 Other external cause status ==

== ENCOUNTER → 2020-05-24 | Outpatient (CLI) | payer OTHER, MEDICARE | LOC: HYPER 09:10 | PROVIDERS: ATTEND Emergency Medicine Emergency Medical Services | DX: T63.391A Toxic effect of venom of other spider, accidental (unintentional), initial encounter (principal); S81.802A Unspecified open wound, left lower leg, initial encounter; I25.10 Atherosclerotic heart disease of native coronary artery without angina pectoris; I10 Essential (primary) hypertension; E78.00 Pure hypercholesterolemia, unspecified; G89.4 Chronic pain syndrome; R60.9 Edema, unspecified; E11.9 Type 2 diabetes mellitus without complications; J44.9 Chronic obstructive pulmonary disease, unspecified; F17.210 Nicotine dependence, cigarettes, uncomplicated; I25.2 Old myocardial infarction; Z85.46 Personal history of malignant neoplasm of prostate; Z95.828 Presence of other vascular implants and grafts; Z79.4 Long term (current) use of insulin; Z79.82 Long term (current) use of aspirin; Y93.89 Activity, other specified; Y92.89 Other specified places as the place of occurrence of the external cause; Y99.8 Other external cause status ==

== ENCOUNTER → 2020-09-14 | Outpatient (CLI) | payer OTHER, MEDICARE | LOC: SJCVCIMAG 09:06 | PROVIDERS: ATTEND Internal Medicine Cardiovascular Disease | DX: I49.3 Ventricular premature depolarization (principal); I25.10 Atherosclerotic heart disease of native coronary artery without angina pectoris; I10 Essential (primary) hypertension; E78.00 Pure hypercholesterolemia, unspecified; R60.9 Edema, unspecified; S81.802D Unspecified open wound, left lower leg, subsequent encounter; J44.9 Chronic obstructive pulmonary disease, unspecified; E78.5 Hyperlipidemia, unspecified; E11.9 Type 2 diabetes mellitus without complications; I25.2 Old myocardial infarction; F17.210 Nicotine dependence, cigarettes, uncomplicated; Z01.818 Encounter for other preprocedural examination; Z91.040 Latex allergy status; Z79.899 Other long term (current) drug therapy; Z79.82 Long term (current) use of aspirin; Z79.4 Long term (current) use of insulin; Z98.61 Coronary angioplasty status; Z88.1 Allergy status to other antibiotic agents; Z88.2 Allergy status to sulfonamides; Z88.8 Allergy status to other drugs, medicaments and biological substances; X58.XXXD Exposure to other specified factors, subsequent encounter ==

== ENCOUNTER 2020-10-17 21:04 | Inpatient (IN) | payer OTHER, MEDICARE ==
[~2020-10-17] VITALS: Ht 188 cm; Wt 78.9 kg
[2020-10-17 21:14] VITALS: BP 154/95
[2020-10-18 03:18] LABS: HEMATOCRIT 34.8 % (42.0-52.0); MCH 34.1 pg (26.0-34.0); MCHC 34.5 g/dL (28.0-37.0); MCV 99.1 fL (80.0-100.0); RBC 3.51 mil/uL (4.50-6.00); RDW 12.4 % (10.5-14.5); WBC 10.2 thou/uL (4.0-11.0)
[2020-10-18 03:21] LABS: CALCIUM 8.8 mg/dL (8.5-10.1); CREATININE 0.9 mg/dL (0.7-1.3)
[2020-10-18 03:36] LABS: ALBUMIN 2.9 g/dL (3.4-5.0); TOTAL BILIRUBIN 0.4 mg/dL (0.2-1.0); TOTAL PROTEIN 6.7 g/dL (6.4-8.2)
[2020-10-18 07:35] VITALS: BP 125/93
[2020-10-18 19:14] VITALS: BP 137/90
[2020-10-18 19:20] VITALS: BP 137/90
[2020-10-18 19:41] VITALS: BP 130/74
[2020-10-18 20:34] VITALS: BP 150/85
--- NOTE | 2020-10-19 02:48 | NUR ---
PT ARRIVED FROM THE ER. A&OX4 ADMISSION DONE AND PT ORIENTED TO THE UNIT. CERVICAL COLAR ON NECK INTACT. HYDROCODONE GIVEN FOR PAIN. BSG CHECKED AND NIGHT TIME INSULIN ADMINISTERED. FALL PREC IN PLACE. URINAL AT BEDSIDE. WILL CONT TO MONITOR TILL EOS.
[2020-10-19 04:41] VITALS: BP 166/74
[2020-10-19 07:10] LABS: HEMATOCRIT 33.4 % (42.0-52.0); HEMOGLOBIN 11.4 gm/dL (14.0-18.0); MCH 33.5 pg (26.0-34.0); MCHC 34.1 g/dL (28.0-37.0); MCV 98.3 fL (80.0-100.0); RBC 3.4 mil/uL (4.50-6.00); RDW 12.4 % (10.5-14.5); WBC 7.5 thou/uL (4.0-11.0)
[2020-10-19 07:58] VITALS: BP 131/86
--- NOTE | 2020-10-19 14:18 | NUR ---
assessment: CM REVIEWED CHART AND MET WITH PATIENT AND HIS AT THE BEDSIDE. PT IS ALERT AND ORIENTED X4. PT WAS STATUS POST LUMBAR FUSION A FEW WEEKS AGO AND REPORTS WAS RECENTLY AT [facility] AND THEN LEFT A FEW DAYS AGO AND WENT HOME. PT REPORTS HE WAS TO DO OUTPATIENT THERAPY. PT LIVES IN A HOUSE WITH HIS . PT HAS A MAN CAVE HE STATES WHEN ENTERING THROUGH THE GARAGE AND A LIFT CHAIR AND CAN HANG OUT IN THE BASEMENT. PT REPORTS USING A WHEELCHAIR AND ALSO HAS A TRANSPROT CHAIR AND WALKER. PT REPORTS HIS STAY AT [facility] WAS TERRIBLE AND HE WOULD NOT GO BACK. [facility] WAS CONSULTED TO SEE PATIENT HERE. [facility] STATING THEY CANNOT ACCEPT DUE TO RECENT ACUTE REHAB STAY AT [facility]. CM DISCUSSED WITH PATIENT AND HIS AND PROVIDED A SNF LIST. PT REPORTS INTEREST IN [facility] SINCE HIS PCP GOES THERE. CM FAXED REFERRAL TO [facility] AND AWAITING FURTHER INOUT AT THIS TIME. CM WILL CONTINUE TO FOLLOW.
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
[2020-10-19 17:07] VITALS: BP 131/89
[2020-10-19 19:01] VITALS: BP 141/85
--- NOTE | 2020-10-20 00:01 | NUR ---
ASSESSED AT START OF SHIFT. PT C/O PAIN. IV PAIN MEDICATION GIVEN. DR MCINTOSH PAGED DUE TO PT REQUEST TO SMOKE ORDERS RECIEVED FOR NICOTINE PATCH. ANXIETY MED GIVEN, PAIN MED AND NIGHT TIME MEDICATION PROVIDED. FALL PREC IN PLACE. PT REPOSITIONED FOR COMFORT. BSG CHECKED AND INSULIN GIVEN. WILL CONT TO MONITOR.
[2020-10-20 04:50] VITALS: BP 137/86
[2020-10-20 08:01] VITALS: BP 161/91
[2020-10-20 09:04] LABS: HEMATOCRIT 36.9 % (42.0-52.0); HEMOGLOBIN 12.4 gm/dL (14.0-18.0); MCH 33.3 pg (26.0-34.0); MCHC 33.6 g/dL (28.0-37.0); MCV 99.3 fL (80.0-100.0); RBC 3.71 mil/uL (4.50-6.00); RDW 12.9 % (10.5-14.5); WBC 9.4 thou/uL (4.0-11.0)
--- NOTE | 2020-10-20 13:03 | NUR ---
on-going assessment: CM REVIEWED CHART. LIASON FROM [facility] STATING THEY CAN ACCEPT PATIENT BUT WANTING TO KNOW GUESSTIMATED DISCHARGE DATE. CM SPOKE WITH PHYSICIAN WHO REPORTS HE ORDERED REPEAT LABS TODAY AND TO POSSIBLY PLAN FOR DISCHARGE TOMORROW. CM NOTIFIED LIASON WELL FAXED UPDATED CLINICAL INFORMATION. CM ALSO NOTIFIED PT AND HIS TONYA. CM WILL CONTINUE TO FOLLOW TO ASSIST NEEDED.
[2020-10-20 15:38] LABS: URINE BILIRUBIN NEGATIVE (Negative); URINE BLOOD TRACE (Negative); URINE CLARITY CLEAR; URINE COLOR YELLOW; URINE GLUCOSE-RANDOM* NEGATIVE (Negative); URINE KETONES NEGATIVE (Negative); URINE LEUKOCYTES-REFLEX NEGATIVE (Negative); URINE NITRITE-REFLEX NEGATIVE (Negative); URINE PROTEIN (DIPSTICK) NEGATIVE (Negative); URINE SPECIFIC GRAVITY 1.015 (1.005-1.035); URINE UROBILINOGEN 0.2 E.U./dl (0.2-1.0)
[2020-10-20 17:03] VITALS: BP 122/77
--- NOTE | 2020-10-20 18:30 | NUR ---
PT ASSESSED AT START OF SHIFT. DR. MCINTOSH IN EARLY. PAIN MANAGED FAIRLY WELL W/ MEDS. DOES NEED TO BE FED MEALS AND UNABLE TO POSITION HIS URINAL BY HIMSELF. RT ARM WEAKER THAN LT. NO FEVER NOTED THIS SHIFT. CXR SHOWING RLL INFILTRATE AND ZOSYN STARTED. PT C/O FEELING LIKE IT'S HARDER TO TAKE DEEP BREATHS SO ENCOURAGED TO WORK ON DEEP BREATHING AND COUGHING. RT TO BRING I/S FOR PT TO USE. O2 SATS 94%. AT BEDSIDE AND UPDATED ON CONDITION.
[2020-10-20 20:24] VITALS: BP 121/79
[2020-10-21 07:13] VITALS: BP 114/71
[2020-10-21 10:58] VITALS: BP 114/77
--- NOTE | 2020-10-21 13:44 | NUR ---
on-going assessment: CM REVIEWED CHART. PER PROGRESS NOTES PHYSICIAN IS ANTICIPATING POSSIBLE DISCHARGE TOMORROW TO [facility]. CM SPOKE WITH LIASON AT [facility] WHO REPORTS SHE CAN ACCEPT PATIENT TOMORROW. CM UPDATED PATIENT WELL PTS . CM FAXED UPDATED CLINICAL TO [facility]. CM WILL CONTINUE TO FOLLOW.
--- NOTE | 2020-10-21 14:41 | NUR ---
ASSUMED CARE OF PT AT 0700 THIS MORNING. PT IS A/OX4 C/O BACK AND SHOULDER PAIN. PT HAS C-COLLAR IN PLACE AND HAS GENERAL WEAKNESS AND UNCCOORDINATED. ASSESSMENTS CHARTED AND OTHERWISE UNREMARKABLE. FALL PRECAUTIONS ARE IN PLACE WITH CALL LIGHT AND OTHER NEEDS WITHIN REACH. MEDS AND TX GIVEN NEEDED AND SCHEDUELED. WILL MONITOR AND NOTE ANY CHANGES.
[2020-10-21] MEDS ORDERED: AUGMENTIN 875-1 EACH PO (16:16)
[2020-10-21] MEDS ORDERED: Nicotine Transdermal TRANSDERM (16:16)
[2020-10-21] MEDS ORDERED: K-DUR 20 MEQ T20 MEQ PO (16:18)
[2020-10-21 17:12] VITALS: BP 121/74
[2020-10-21 20:08] VITALS: BP 145/70
--- NOTE | 2020-10-22 02:36 | NUR ---
PT IS A/O X4 AND IS UP WITH ASSISTANCE X2. ROOM AIR. VSS. AFEBRILE. HS BS ELEVATED. PT REFUSED LISPRO STATING IT MADE HIS SUGAR TOO LOW THE PREVIOUS AM. ALL OTHER MEDICATION GIVEN PER MAR. C/O LOWER BACK PAIN. PRN PAIN MEDICATION GIVEN DIRECTED. DRSG TO BUTTOCK C/D/I. VOIDS PER URINAL WITH ASSISTANCE. NO BM THIS SHIFT. LINENS CHANGED AND STATED SHE WOULD BE HERE IN THE EARLY AM TO GIVE PT A BATH PRIOR TO HIS TRANSFER TO THE RECEIVING FACILITY. FALL PRECAUTIONS IN PLACE, CALL LIGHT IS WITHIN REACH. WILL CONTINUE TO MONITOR.
[2020-10-22 07:02] VITALS: BP 123/73
[2020-10-22 08:48] VITALS: BP 123/73
[2020-10-22] MEDS ORDERED: CEFDINIR300 MG PO (09:04)
[2020-10-22] MEDS ORDERED: DURAGESIC1 EAC3 TRANSDERM (09:06)
[2020-10-22] MEDS ORDERED: OXYCODONE HCL10 MG PO (09:06)
[2020-10-22] MEDS ORDERED: DIAZEPAM 5 MG5 M1 PO (09:06)
--- NOTE | 2020-10-22 09:40 | NUR ---
ON-GOING ASSESSMENT: CM REVIEWED CHART AND SPOKE WITH ATTENDING. PT IS STABLE TO DISCHARGE TODAY TO SNF. CM REACHED OUT TO LIASON AT [facility] AND THEY CAN ACCEPT TODAY AND PER WIFES REQUEST HAVE ARRANGED FOR TRANSPORATION AT 1300. BEDSIDE RN, PATIENT, AND PTS AWARE AND AGREEABLE WITH PLAN. CHART COPY HAS BEEN ORDERED AND MATCHBOOK MAKER NOTIFIED. CM FAXED D/C PAPERWORK TO [facility] AND CONFIRMED THEY RECEIVED IT. AND PT REPORT NO FURTHER NEEDS FROM CM. BEDSIDE RN IS AWARE OF THE NUMBER FOR REPORT.
== END 2020-10-22 14:00 | DRG 73 ==
LOC: ER 21:04 → EROBS 22:41 → 4S 10-18 02:16 → EROBS 10-18 02:16 → 4S 10-18 19:58
PROVIDERS: Emergency Medicine; ADMIT Family Medicine; ATTEND Family Medicine
DX: M54.12 Radiculopathy, cervical region (principal); L89.153 Pressure ulcer of sacral region, stage 3; J18.9 Pneumonia, unspecified organism; Z20.822 Contact with and (suspected) exposure to COVID-19; M54.2 Cervicalgia; Z96.631 Presence of right artificial wrist joint; F17.210 Nicotine dependence, cigarettes, uncomplicated; M54.16 Radiculopathy, lumbar region; E11.42 Type 2 diabetes mellitus with diabetic polyneuropathy; M54.9 Dorsalgia, unspecified; R33.9 Retention of urine, unspecified; S80.812A Abrasion, left lower leg, initial encounter; S80.811A Abrasion, right lower leg, initial encounter; G89.29 Other chronic pain; I25.2 Old myocardial infarction; Z95.5 Presence of coronary angioplasty implant and graft; Z88.8 Allergy status to other drugs, medicaments and biological substances; Z91.041 Radiographic dye allergy status; Z91.040 Latex allergy status; Z85.46 Personal history of malignant neoplasm of prostate; X58.XXXA Exposure to other specified factors, initial encounter; Y93.89 Activity, other specified; Y92.89 Other specified places as the place of occurrence of the external cause; Y99.8 Other external cause status
CPT/HCPCS: 10195

== ENCOUNTER 2020-11-07 17:52 | Emergency (ER) | payer OTHER, MEDICARE ==
[~2020-11-07] VITALS: Ht 188 cm; Wt 79.4 kg
--- NOTE | ~2020-11-07 | EMS ---
[address] [address] EMS Patient Care Report Name: RODRICK NAVA Room #: REG LIZY Luis#: [id number] Admission: 11/07/20 Attend Phys: Discharge: Date of : 48 Report #: [id number] THIS REPORT FOR: //name// Report Transmitted: 11/07/2020 20:14 EMS Care Summary [facility] MED-ACT Incident [id number] @ 11/07/2020 16:36 Incident Location [address] [place] [address] Patient RODRICK NAVA Male, 69 Years 1950 Patient Address [address] [place] [address] Patient History Chronic Obstructive Pulmonary Disease (COPD),Hypertension (HTN),Hyperlipidemia,Anxiety,Atrial Fibrillation,Anemia,Pressure Ulcer,Gallstone,Back Pain (Chronic),Back Surgery,Type 2 Diabetes, Patient Allergies Iodine, Patient Medications ASA, Acyclovir, Atorvastatin, Carvedilol, Benadryl, Chlorthalidone, Fentanyl, Diazepam, Clonidine, Humalog, Losartan, Flomax, Symbicort, Metformin, Nitroglycerin, Trazodone, Augmentin, Hydrocodone, Pantoprazole, Potassium, Promethazine, Proair, Lantus, Ondansetron, Tizanidine, Chief Complaint he rolled out of bed Disposition Transported No Lights/[place] Dispatch Reason Falls Transported To [address] [address] EMS Patient Care Report Name: RODRICK NAVA Room #: REG [facility].#: [id number] Admission: 11/07/20 Attend Phys: Discharge: Date of : 48 Report #: [id number] Narrative Dispatched to a rehab facility for a male pt reported to have fallen out of bed and acting unusually. EMS arrives to find the pt on the floor between his bed and the window, responsive with non-sensical words to loud voice. Pt is writhing and thrashing his extremities and is noted to have a cervical collar in place. Pt is diaphoretic and cool to the touch. Upon assessment, pt is found to be hypoglycemic. IV placed in his right foot after previous attempts in the arm were unsuccessful due to pt movement. D10 given, titrated to improvement of pts LOC. Once alert, pt was lifted carefully and placed in his bed in a position of comfort. He reports extensive neck and back surgeries, with the most recent fusion of his neck about a month prior. Pt also reports that he believes he slept through lunch and that he had been given 30 units of lantus yesterday instead of his prescribed dose of 20 units. He says that his bG has been in the 40's and 50's each morning recently so his doses are supposed to be adjusted to prevent future lows. He says that currently his only complaint is of feeling cold and having more back pain than usual. Initially, staff reports that the pts does not want him transported to an ER. Pt reports that he will follow his 's advice. EMS remained on scene extended until the pts arrived. We explained our findings and concern over possible injury to the pts back after his fall and erratic movements while he was hypoglycemic. Medication dosing and missing a meal were also discussed. After a significant time, during which facility staff entered the room and provided the pt with his scheduled medication (10 mg hydrocodone), pt and his agreed to permit EMS transport. Pt is lifted from the bed to the cot before being secured in a position of comfort. Pt is transported no lights or sirens to [facility] ER. He rests while en route without change in complaint. Pt is lifted from the cot to the ER bed in room #3 using a lateral sheet pull. Care transferred to waiting staff, including Dr. Anglin. Initial Vitals @17:45P: 99,IL Suspected: false @17:45P: 92,BP: 138/78,Glucose: 97,SpO2: 98, @16:46P: 84,R: 18,BP: 156/82,GCS: 10,Temp: 97.8F,Glucose: 33,SpO2: 97,Revised Trauma: 11, @17:05P: 88,R: 16,BP: 133/87,Pain: 4/10,GCS: 15,Glucose: 132,SpO2: 98,Revised Trauma: 12, Impression Diabetic Hypoglycemia Procedures @17:15Surgical Mask on PatientResponse: Unchanged@16:50Saline Lock 0cc (20 ga) Site: Forearm-RightResponse: UnchangedFailed@16:51Saline Lock 0cc (20 ga) Site: [address] [address] EMS Patient Care Report Name: RODRICK NAVA Room #: REG [facility]..#: [id number] Admission: 11/07/20 Attend Phys: Discharge: Date of : 48 Report #: [id number] Forearm-LeftResponse: UnchangedFailed@16:53Saline Lock 0cc (20 ga) Site: Antecubital-LeftResponse: UnchangedFailed@16:55Normal Saline (.9% NaCl) 150cc (20 ga) Site: Foot - RightResponse: UnchangedSucceeded@16:56Dextrose 10% - 150 Milliliters (ml) - Intravenous (IV)Response: Improved@PTASpinal Motion RestrictionResponse: UnchangedSucceeded Timeline ASBESTOS PIPE SUPERVISOR,Spinal Motion Restriction,Response: UnchangedSucceeded, 16:34,Call Received 16:34,Psap Call 16:36,Dispatched 16:36,En Route 16:43,On Scene 16:45,At Patient 16:46,BP: 156/82 M,PULSE: 84,RR: 18 R,SPO2: 97 Ox,ETCO2: ,B,PAIN: ,GCS: 10, 16:50,Saline Lock 0cc 20 ga Site: Forearm-Right,Response: UnchangedFailed, 16:51,Saline Lock 0cc 20 ga Site: Forearm-Left,Response: UnchangedFailed, 16:53,Saline Lock 0cc 20 ga Site: Antecubital-Left,Response: UnchangedFailed, 16:55,Normal Saline (.9% NaCl) 150cc 20 ga Site: Foot - Right,Response: UnchangedSucceeded, 16:56,Dextrose 10% - 150 Milliliters (ml) - Intravenous (IV),Response: Improved 17:05,BP: 133/87 M,PULSE: 88,RR: 16 R,SPO2: 98 Ox,ETCO2: ,B,PAIN: 4,GCS: 15, 17:15,Surgical Mask on Patient,Response: Unchanged 17:43,Depart Scene 17:45,BP: / M,PULSE: 99,RR: R,SPO2: Ox,ETCO2: ,BG: ,PAIN: ,GCS: , 17:45,BP: 138/78 M,PULSE: 92,RR: R,SPO2: 98 Ox,ETCO2: ,B,PAIN: ,GCS: , 17:49,At Destination 18:07,Call Closed Disclaimer v1.1 Copyright 2020 [employer] This EMS Care Summary contains data elements from the applicable legal record (which may be displayed differently). It is designed to provide pertinent information for the following purposes: continuity of care, clinical quality, and state data reporting. The complete legal record is available to ED staff and administrators of the receiving hospital in [employer]'s Patient Tracker. All data is provided "as is."
[~2020-11-07 17:52] MED LIST changes: +AUGMENTIN 875-1 EACH PO; +CEFDINIR300 MG PO; +DIAZEPAM 5 MG5 M1 PO; +DURAGESIC1 EAC3 TRANSDERM; +K-DUR 20 MEQ T20 MEQ PO; +Nicotine Transdermal TRANSDERM; +OXYCODONE HCL10 MG PO
[2020-11-07 18:53] LABS: ABSOLUTE NEUTROPHILS 8.1 thou/uL (1.4-8.2); BASOPHILS 0.6 % (0.0-2.0); EOSINOPHILS 0.2 % (0.0-3.0); HEMATOCRIT 37.1 % (42.0-52.0); HEMOGLOBIN 12.6 gm/dL (14.0-18.0); LYMPHOCYTES 7.2 % (24.0-44.0); MCHC 33.9 g/dL (28.0-37.0); MCV 97.3 fL (80.0-100.0); PLATELET COUNT 375 thou/uL (150-400); RBC 3.81 mil/uL (4.50-6.00); RDW 13.7 % (10.5-14.5); URINE BILIRUBIN NEGATIVE (Negative); URINE BLOOD 1+ (Negative); URINE CLARITY CLEAR; URINE COLOR YELLOW; URINE GLUCOSE-RANDOM* NEGATIVE (Negative); URINE KETONES NEGATIVE (Negative); URINE LEUKOCYTES-REFLEX NEGATIVE (Negative); URINE NITRITE-REFLEX NEGATIVE (Negative); URINE PROTEIN (DIPSTICK) NEGATIVE (Negative); URINE SPECIFIC GRAVITY 1.015 (1.005-1.035); URINE UROBILINOGEN 0.2 E.U./dl (0.2-1.0); WBC 9.4 thou/uL (4.0-11.0)
[2020-11-07 19:02] LABS: CALCIUM 9.5 mg/dL (8.5-10.1); CREATININE 0.9 mg/dL (0.7-1.3); POTASSIUM 3.6 mmol/L (3.5-5.1)
[2020-11-07 19:03] LABS: CASTS None Seen /LPF (None Seen); SQUAMOUS 0-3 Few /LPF (0-3); URINE RBC 1-2 Rare /HPF (NONE SEEN); URINE WBC-REFLEX 0-5 Rare /HPF (0-5)
[2020-11-07 19:04] LABS: AMORPHOUS PHOSPHATES Moderate /LPF (None Seen); BACTERIA-REFLEX 1-9 Few /HPF (None Seen)
[2020-11-07 19:09] LABS: DIRECT BILIRUBIN 0.1 mg/dL (<0.1-0.2); MAGNESIUM 1.5 mg/dL (1.8-2.4); TOTAL BILIRUBIN 0.6 mg/dL (0.2-1.0); TOTAL PROTEIN 6.3 g/dL (6.4-8.2)
[2020-11-07 21:51] VITALS: BP 139/84
== END 2020-11-07 21:53 | disposition home or self-care (01) ==
LOC: ER 17:52
PROVIDERS: Emergency Medicine
DX: E16.0 Drug-induced hypoglycemia without coma (principal); M54.5 Low back pain; F17.210 Nicotine dependence, cigarettes, uncomplicated; I25.2 Old myocardial infarction; Z98.1 Arthrodesis status; Z79.891 Long term (current) use of opiate analgesic; Z79.899 Other long term (current) drug therapy; Z79.82 Long term (current) use of aspirin; Z79.4 Long term (current) use of insulin; Z79.51 Long term (current) use of inhaled steroids; Z88.6 Allergy status to analgesic agent; Z91.041 Radiographic dye allergy status; Z91.040 Latex allergy status; Z91.018 Allergy to other foods; Z91.010 Allergy to peanuts; Z88.8 Allergy status to other drugs, medicaments and biological substances; Z91.09 Other allergy status, other than to drugs and biological substances

== ENCOUNTER → 2020-12-08 | Outpatient (CLI) | payer OTHER, MEDICARE | END | disposition home or self-care (01) | LOC: CAT 10:43 | PROVIDERS: ATTEND Family Medicine | DX: R91.1 Solitary pulmonary nodule (principal); I25.10 Atherosclerotic heart disease of native coronary artery without angina pectoris; R59.0 Localized enlarged lymph nodes; J98.4 Other disorders of lung; M25.78 Osteophyte, vertebrae ==

== ENCOUNTER → 2021-03-18 | Outpatient (CLI) | payer OTHER, MEDICARE | LOC: SJCVC 09:58 | PROVIDERS: ATTEND Internal Medicine Cardiovascular Disease | DX: I49.1 Atrial premature depolarization (principal); I25.10 Atherosclerotic heart disease of native coronary artery without angina pectoris; I10 Essential (primary) hypertension; E78.00 Pure hypercholesterolemia, unspecified; R60.9 Edema, unspecified; Z72.0 Tobacco use; J44.9 Chronic obstructive pulmonary disease, unspecified; C61 Malignant neoplasm of prostate; G89.4 Chronic pain syndrome; R60.0 Localized edema; I48.91 Unspecified atrial fibrillation; Z79.82 Long term (current) use of aspirin; Z79.84 Long term (current) use of oral hypoglycemic drugs; Z79.899 Other long term (current) drug therapy; Z98.1 Arthrodesis status; Z98.890 Other specified postprocedural states; Z88.5 Allergy status to narcotic agent; Z88.1 Allergy status to other antibiotic agents; Z88.8 Allergy status to other drugs, medicaments and biological substances ==

== ENCOUNTER 2021-04-13 19:44 | Emergency (ER) | payer OTHER, MEDICARE ==
[~2021-04-13] VITALS: Ht 188 cm; Wt 78.9 kg
[2021-04-13 20:36] LABS: HEMATOCRIT 45.5 % (42.0-52.0); HEMOGLOBIN 15.4 gm/dL (14.0-18.0); MCH 34.7 pg (26.0-34.0); MCHC 33.7 g/dL (28.0-37.0); RBC 4.42 mil/uL (4.50-6.00); RDW 13.7 % (10.5-14.5); WBC 9.8 thou/uL (4.0-11.0)
[2021-04-13 20:42] LABS: CALCIUM 10.2 mg/dL (8.5-10.1); CREATININE 0.8 mg/dL (0.7-1.3); POTASSIUM 3.8 mmol/L (3.5-5.1)
[2021-04-13 20:48] LABS: TOTAL BILIRUBIN 1.1 mg/dL (0.2-1.0); TOTAL PROTEIN 7.3 g/dL (6.4-8.2)
[2021-04-13 21:31] LABS: URINE BILIRUBIN NEGATIVE (Negative); URINE BLOOD TRACE (Negative); URINE CLARITY SL CLOUDY; URINE COLOR YELLOW; URINE GLUCOSE-RANDOM* 1+ (Negative); URINE KETONES 1+ (Negative); URINE LEUKOCYTES-REFLEX NEGATIVE (Negative); URINE NITRITE-REFLEX NEGATIVE (Negative); URINE PROTEIN (DIPSTICK) NEGATIVE (Negative); URINE SPECIFIC GRAVITY 1.015 (1.005-1.035); URINE UROBILINOGEN 0.2 E.U./dl (0.2-1.0)
[2021-04-13 22:02] VITALS: BP 190/91
== END 2021-04-13 22:11 | disposition home or self-care (01) ==
LOC: ER 19:44
PROVIDERS: Nurse Practitioner Family
DX: R11.2 Nausea with vomiting, unspecified (principal); G89.29 Other chronic pain; I25.2 Old myocardial infarction; Z91.041 Radiographic dye allergy status; Z91.040 Latex allergy status; Z91.09 Other allergy status, other than to drugs and biological substances; Z79.899 Other long term (current) drug therapy; Z79.82 Long term (current) use of aspirin